=== PATIENT | male | born 1990 | race Caucasian/White ===

== ENCOUNTER 2020-02-18 10:35 | Inpatient (IN) | payer OTHER ==
[~2020-02-18] VITALS: Ht 177.8 cm; Wt 109.3 kg
[2020-02-18 10:52] VITALS: Ht 177.8 cm; Wt 109.3 kg
--- NOTE | 2020-02-18 11:17 | NUR ---
PT BIB SELF C/O DYSURIA AND BURNING WITH URINATION X 1 DAY. PT REPORTS "I FEEL SOMETHING HARD HERE" AND POINTS TO MIDLINE PELV[place]. PT REPORTS GROIN PAIN, DYSURIA AND BURNING WITH URINATION X 1 DAY. PT REPORTS FEVER X 1 DAY AND REPORTS TAKING IBUPROFEN YESTERDAY. PT REPORTS PAIN 8/10 AT THIS TIME. PT AAOX4, RESP E/U, NO DISTRESS NOTED. PT GOWNED AND PLACED ON MONITOR. IV ESTABLISHED AND LABS DRAWN. AWAITING MSE BY . PT GIVEN TYLENOL IN TRIAGE PER NURSING PROTOCOL
--- NOTE | 2020-02-18 11:20 | NUR ---
PT TAKEN OFF ER FLOOR TO CT
--- NOTE | 2020-02-18 11:31 | NUR ---
PT RETURNED TO ER FLOOR FROM CT
[2020-02-18 12:00] LABS: CALCIUM 8.4 mg/dL (8.5-10.1); CARBON DIOXIDE 24.1 mmol/L (21-32); CHLORIDE SERUM 102 mmol/L (98-107); GFR1 > 60 mL/min; GLUCOSE SERUM 106 mg/dL (74-106); POTASSIUM SERUM 3.7 mmol/L (3.5-5.1); SODIUM SERUM 134 mmol/L (136-145)
--- NOTE | 2020-02-18 12:00 | NUR ---
JAYLAN GATICA AT THE BEDSIDE FOR LAB DRAW.
[2020-02-18 12:05] LABS: ALBUMIN 3.7 g/dL (3.4-5.0); ALKALINE PHOSPHATASE 98 U/L (46-116); ALT/SGPT 58 U/L (16-63); AST/SGOT 23 U/L (15-37); BILIRUBIN TOTAL 1.61 mg/dL (0.20-1.00); TOTAL PROTEIN, SERUM 7.7 g/dL (6.4-8.2)
[2020-02-18 12:15] LABS: UA SPECIFIC GRAVITY 1.015 (1.005-1.035); microscopic required? YES; urine erythrocyte NEGATIVE (NEGATIVE)
[2020-02-18 12:25] LABS: PLATELET COUNT 175 x10^3mcL (130-400); RED CELL DISTRIBUTION WIDTH 13.4 % (11.5-14.5)
[2020-02-18 12:27] LABS: BASOPHIL % 0 % (0-2)
--- NOTE | 2020-02-18 13:22 | NUR ---
REPORT CALLED TO MELISSA HOBSON. SHE WILL ASSUME FURTHER CARE OF THIS PT
[2020-02-18 13:48] VITALS: BP 125/72
--- NOTE | 2020-02-18 13:55 | NUR ---
RECEIVED PT FROM ER, PT ADMIT FOR PERFORATED DIVERTICULITIS. PT IS A/O X4, VERBAL RESPONSIVE. LUNG SOUND CLEAR BILATERAL, NO COUGH, NO SOB. PT DENY ANY CHEST PAIN OR DISCOMFORT, BOWEL SOUND PRESENT ALL 4 QUADRANTS, HYPOACTIVE. PT C/O LOW MID ABD PAIN 7/10, DENY ANY N/V AT THIS TIME, PEDAL PULSE PRESENT BOTH FEET, NO EDEMA, IV AT RIGHT AC, NO LEAKING, NO INFILTRATION. ALL ADLS ASSIST, ALL NEED MET, CALL LIGHT IN REACH, WILL CONTINUE TO MONITOR.
--- NOTE | 2020-02-18 14:08 | NUR ---
PATIENT ARRIVED TO THE UNIT AT 1330 VIA WHEEL CHAIR . PATIENT A&OX4, SPEAK MINIMAL NEPALI, MAINLY SPANICH. CONTINUING FLAGYL INFUSION AND D5 NS AT 80ML/HR. PATIENT DENIES PAIN, NAUSEA OR VOMITING. ORIENTED PATIENT TO THE UNIT. WILL CONTINUE TO MONITOR PATIENT.
[2020-02-18 16:48] VITALS: BP 110/56
--- NOTE | 2020-02-18 18:13 | NUR ---
PATIENT RESTING COMFORTABLE IN BED. VITAL SIGNS STABLE. DENIES BLOOD IN STOOL OR URINE. WILL CONTINUE TO MONITOR PATIENT
--- NOTE | 2020-02-18 19:50 | NUR ---
RECEIVED PT FROM [facility] NURSE. PT IS AAOX4, UPPER SORBIAN SPEAKING, DENIES HEADACHE/NAUSEA/DIZZINESS. PT IS MED SURG PATIENT, DENIES CHEST PAIN. PULSES ARE EQUAL BILATERALLY, NO EDEMA NOTED. PT IS CTA, ON RA, DENIES SOB. NO ACUTE DISTRESS NOTED, EVEN AND UNLABORED BREATHING. ABDOMEN IS SOFT AND ROUND, NO PAIN UPON PALPATION AT THIS TIME. PATIENT HAS DESCRIBED INTERMITTENT LOWER ABDOMINAL PAIN, DENIES NEED FOR PAIN MEDICATION AT THIS TIME. PT VOIDS FREELY, URINAL AT BEDSIDE. PT IS ABLE TO AMBULATE WITHOUT DIFFICULTY. SKIN IS DRY AND INTACT, NO LESIONS NOTED. IV TO IS RAC, SITE INTACT, D5NS RUNNING AT 80 ML/HR, NO REDNESS OR SWELLING NOTED. PT IS CALM AND COOPERATIVE. ALL SAFETY MEASURES IN PLACE. BED IN LOWEST POSITION, CALL LIGHT WITHIN REACH. WILL CONTINUE TO MONITOR.
[2020-02-18 21:07] VITALS: BP 117/59
--- NOTE | 2020-02-19 00:10 | NUR ---
[employer]UMENTS INSPECTOR REPORTED TEMP OF 100.8. APPLIED COOLING MEASURES. TEMP WAS RE-ASSSED, 98.7. PATIENT IS NOT SYMPTOMATIC. ALL SAFETY MEASURES IN PLACE. BED IN LOWEST POSITION, CALL LIGHT WITHIN REACH.
[2020-02-19 05:00] VITALS: BP 101/48
--- NOTE | 2020-02-19 06:24 | NUR ---
PATIENT RESTED INTERMITTENTLY WITH NO ACUTE DISTRESS. PATIENT DENIES NEED FOR PAIN MEDICATION AT THIS TIME. DENIES CHEST PAIN/SOB. IV TO RAC, SITE INTACT, NO REDNESS OR SWELLING. D5NS 80ML/HR RUNNING IN RAC. CURRENTLY RUNNING SECOND DOSE OF FLAGYL IV. PATIENT HAD DIARRHEA THROUGHOUT THE NIGHT. ALL SAFETY MEASURES IN PLACE. BED IN LOWEST POSITION, CALL LIGHT WITHIN REACH. WILL CONTINUE TO MONITOR.
--- NOTE | 2020-02-19 07:18 | NUR ---
ENDORSED CARE TO DAYSHIFT NURSE. ALL QUESTIONS/CONCERNS ADDRESSED.
[2020-02-19 07:50] VITALS: BP 127/79
--- NOTE | 2020-02-19 11:13 | NUR ---
PATIENT REMAINS NPO. VISTAL SIGNS STABLE. PATIENT HAD ONE EPISODE OF DIARRHEA TODAY, BUT DENIES BLOODY STOOL OR URINE. PATIENT DENIES ANY ABDOMINAL PAIN. HE SAID IT FELLS MORE LIKE DISCOMFORT FROM TOO HUNGRY. CONTINUING IV NORMAL SALINE INFUSION 80ML/HR. PATIENT RESTING COMFORTABLE IN BED. CALL LIGHT WITHIN REACH. WILL CONTINUE TO MONITOR PATIENT.
[2020-02-19 11:59] VITALS: BP 125/76
[2020-02-19 17:05] VITALS: BP 120/75
--- NOTE | 2020-02-19 17:36 | NUR ---
PATEINT REMAINS AFREBRILE THROUGH OUT THE SHIFT. CONTINUING IV D5NS. IV FLAGYL AND CEFTRIAXONE GIVEN. PATIEN STATED THAT HE IS FEELING BETTER
[2020-02-19 21:19] VITALS: BP 126/70
--- NOTE | 2020-02-19 21:20 | NUR ---
AOXX4 LAYING COMFORTABLY IN BED DENIES PAIN/DISCOMFORT NPO NO OTHER COMPLAINTS AT THIS TIME CALL LIGHT WITHIN REACH WILL CONTINUE TO MONITOR PT
[2020-02-20 04:37] VITALS: BP 121/70
--- NOTE | 2020-02-20 06:15 | NUR ---
PT SLEPT WELL THROUHOUT THE NIGHT DENIES PAIN/DISCOMFORT NPO MAINTAINED NO SOB NO SIGNS OF DISTRESS NOTED IVF RUNNING VSS CALL LIGHT WITHIN REACH WILL ENDORSE TO ONCOMING RN
[2020-02-20 07:36] VITALS: BP 136/81
[2020-02-20 07:50] LABS: BASOPHIL % 0.4 % (0-2); PLATELET COUNT 212 x10^3mcL (130-400)
[2020-02-20 08:11] LABS: CALCIUM 8.9 mg/dL (8.5-10.1); CARBON DIOXIDE 24.3 mmol/L (21-32); CHLORIDE SERUM 105 mmol/L (98-107); CREATININE SERUM 0.9 mg/dL (0.7-1.3); GFR1 > 60 mL/min; GLUCOSE SERUM 98 mg/dL (74-106); POTASSIUM SERUM 3.8 mmol/L (3.5-5.1); SODIUM SERUM 140 mmol/L (136-145)
--- NOTE | 2020-02-20 10:28 | NUR ---
PATIENT IS ALERT AND ORIENTED X4. PATIENT DENIES PAIN. PATEINT STATED HE HAD DIARRHEA 3-4 TIMES THIS MORNING. PATIENT DENIES SHORTNESS OF BREATH, PAIN, AND RESPIRATORY DISTRESS. AM CARE NEEDS MET. PATIENTS TOLERATED AM MEDICATIONS WELL. PATIENT WENT DOWN FOR CT SCAN. HOMEOSTASIS MAINTAINED AT PATIENTS BASELINE. WILL CONTINUE TO MONITOR PATIENT THROUGHOUT SHIFT.
[2020-02-20 12:05] VITALS: BP 123/72
[2020-02-20 16:06] VITALS: BP 125/77
[2020-02-20 16:17] VITALS: BP 173/107
--- NOTE | 2020-02-20 18:11 | NUR ---
PATIENT IS IN BED RESTING. PATIENT IS ALERT AND ORIENTED X4. PATIENT DENIES PAIN, DISTRESS, AND SHORTNESS OF BREATH. ALL CARE NEEDS MET. HOMEOSTASIS MAINTAINED AT PATIENTS BASELINE. BED IN LOW POSITION. CALL LIGHT IN REACH. TWO SIDE RAILS UP. WILL GIVE REPORT TO NIGHT NURSE.
[2020-02-20 20:26] VITALS: BP 120/76
--- NOTE | 2020-02-20 20:27 | NUR ---
PT AOX4 RESTING IN BED COMFORTABLY DENIES PAIN/DISCOMFORT DENIES N/V/D IVF INFUSING CALL LIGHT WITHIN REACH WILL CONTINUE TO MONITOR PT
[2020-02-21 05:10] VITALS: BP 134/90
--- NOTE | 2020-02-21 05:55 | NUR ---
PT SLEPT WELL THROUGHOUT THE NIGHT MCKENZIE PAIN/DISCOMFORT RA VSS IVF RUNNING NPO MAITIANEED NO COMPLAINTS THROUGHOUT THE SHIFT WILL ENDORSE TO ONCOMING RN
[2020-02-21 07:45] LABS: ALKALINE PHOSPHATASE 107 U/L (46-116); ALT/SGPT 40 U/L (16-63); AST/SGOT 19 U/L (15-37); BILIRUBIN TOTAL 0.44 mg/dL (0.20-1.00); CALCIUM 8.8 mg/dL (8.5-10.1); CARBON DIOXIDE 27.8 mmol/L (21-32); CHLORIDE SERUM 105 mmol/L (98-107); CREATININE SERUM 0.8 mg/dL (0.7-1.3); GFR1 > 60 mL/min; GLUCOSE SERUM 98 mg/dL (74-106); POTASSIUM SERUM 3.9 mmol/L (3.5-5.1); SODIUM SERUM 142 mmol/L (136-145); TOTAL PROTEIN, SERUM 7.9 g/dL (6.4-8.2)
[2020-02-21 07:52] LABS: ALBUMIN 3.3 g/dL (3.4-5.0)
--- NOTE | 2020-02-21 08:23 | NUR ---
PATIENT IS IN BED RESTING. PATIENT IS ALERT AND ORIENTED X4. PATIENT DENIES PAIN, DISTRESS, AND SHORTNESS OF BREATH. IV PATENT AND INTACT. HOMEOSTASIS MAINTAINED AT PATIENTS BASELINE. BED IN LOW POSITION. CALL LIGHT IN REACH. TWO SIDE RAILS UP. WILL CONTINUE TO MONITOR PATIENT THROUGHOUT SHIFT.
[2020-02-21 08:54] VITALS: BP 124/76
[2020-02-21 10:04] LABS: BASOPHIL % 0.3 % (0-2); PLATELET COUNT 245 x10^3mcL (130-400); RED CELL DISTRIBUTION WIDTH 13.1 % (11.5-14.5)
[2020-02-21 12:22] VITALS: BP 126/72
[2020-02-21 17:04] VITALS: BP 123/79
--- NOTE | 2020-02-21 18:23 | NUR ---
PATIENT IS EATING DINNER. PATIENT IS ALERT AND ORIENTED X2. ALL CARE NEEDS MET. PATIENT REQUIRES REORIENTATION DUE TO CONFUSION. BED IN LOW POSITION. CALL LIGHT IN REACH. HOMEOSTASIS MAINTAINED AT BASELINE. WILL GIVE REPORT TO NIGHT NURSE.
--- NOTE | 2020-02-21 18:27 | NUR ---
PATIENT IS IN BED RESTING. PATIENT IS ALERT AND ORIENTED X4. PATIENT DENIES PAIN, DISTRESS, AND SHORTNESS OF BREATH. ALL CARE NEEDS MET. HOMEOSTASIS MAINTAINED AT BASELINE. BED IN LOW POSITION. CALL LIGHT IN REACH. WILL GIVE REPORT TO NIGHT NURSE.
--- NOTE | 2020-02-21 19:30 | NUR ---
RECEIVED PT IN BED AWAKE, A/O X 4, BALE TO FOLLOW COMMANDS, ABLE TO MAKE NEEDS KNOWN, NO MACDONALD OR DIZZINESS. LUNG SOUNDS CLR, RESP IS EVEN AND UNLABORED, SPO2 97% RA. RADIAL AND PEDAL PULSES PRESENT, NO EDEMA NOTED. ABDOMEN ROUND AND SOFT, DENIES ANY PAIN OR TENDERNESS, NO C/O NVD AT THIS TIME. VOIDS FREELY, NO DISCOMFOT REPORTED. SKIN IS WARM, DRY AND INTACT IV SITE TO THE RAC, PATENT AND FLUSHING WELL. BED TO LOWEST POSITION, CALL LIGHT WITHIN REACH. WILL CONT TO MONITOR FOR CHANGES IN CONDITION.
[2020-02-21 21:19] VITALS: BP 126/73
--- NOTE | 2020-02-21 23:24 | NUR ---
PT IN BED RESTING COMFORTABLY WITH EYES CLOSED. NO C/O PAIN, NO ACUTE DISTRESS NOTED. RESP IS EVEN AND UNLABORED. PROVIDE FREQUENT VISUAL MONITORING. BED TO LOWEST POSITION, CALL LIGHT WITHIN REACH. WILL CONT TO MONITOR FOR CHANGES IN CONDITION.
[2020-02-22 05:08] VITALS: BP 107/64
--- NOTE | 2020-02-22 06:09 | NUR ---
PT IN BED AWAKE, RESTING COMFORTABLY. NO C/O PAIN. NO ACUTE DISTRESS NOTED. RESP IS EVEN AND UNLABORED. CONT ONT ATB THEREPY LEVAQUIN AND FLAGYL WITH NO ASE NOTED. PT DENIES ANY ABDOMINAL PAIN, NVD AT THIS TIME. BED TO LOWEST POSITION, CALL LIGHT WITHIN REACH, WILL CONT TO MONITOR FOR CHANGES IN CONDITION AND WILL ENDORSE TO NEXT SHIFT NURSE.
[2020-02-22 06:48] LABS: BASOPHIL % 0.3 % (0-2); PLATELET COUNT 273 x10^3mcL (130-400); RED CELL DISTRIBUTION WIDTH 12.7 % (11.5-14.5)
[2020-02-22 07:10] LABS: CALCIUM 9.3 mg/dL (8.5-10.1); CARBON DIOXIDE 26.9 mmol/L (21-32); CHLORIDE SERUM 106 mmol/L (98-107); CREATININE SERUM 0.9 mg/dL (0.7-1.3); GFR1 > 60 mL/min; GLUCOSE SERUM 102 mg/dL (74-106); POTASSIUM SERUM 4.1 mmol/L (3.5-5.1); SODIUM SERUM 144 mmol/L (136-145)
[2020-02-22 07:55] VITALS: BP 116/63
--- NOTE | 2020-02-22 10:43 | NUR ---
PATIENT IS IN BED RESTING. PATIENT IS ALERT AND ORIENTED X4. PATIET IS COOPERATIVE WITH CARE AND ABLE TO VERBALIZE NEEDS. PATIENT DENIES PAIN, DISTRESS, AND SHORTNESS OF BREATH. PATIENT HAD ONE BOWEL MOVEMENT TODAY AFTER BREAKFAST. STOOL DESCRIPTION: GREEN AND WATERY. AM CARE NEEDS MET. HOMEOSTASIS MAINTAINED AT BASELINE. IV IN RIGHT AC PATENT AND RUNNING IV FLUIDS AT 70ML/HOUR. BED IN LOW POSITION. CALL LIGHT IN REACH. TWO SIDE RAILS UP. WILL CONTINUE TO MONITOR PATIENT THROUGHOUT SHIFT.
[2020-02-22 11:43] VITALS: BP 118/76
[2020-02-22] MEDS ORDERED: FLAGYL500 MG PO (15:21)
[2020-02-22] MEDS ORDERED: LEVAQUIN500 M1 PO (15:21)
[2020-02-22] MEDS ORDERED: PEPCID AC20 M2 PO (15:22)
[2020-02-22 16:10] VITALS: BP 122/74
[2020-02-22 16:19] VITALS: BP 122/74
--- NOTE | 2020-02-22 17:54 | NUR ---
PATIENT DISCHARGED HOME VIA PRIVATE AUTO. IV TAKEN OUT. DISCHARGE PAPERWORK GIVEN TO PATIENT. ID BAND REMOVED. DISCHARGE TEACHING COMPLETE. BELONGINGS SENT HOME WITH PATIENT. PATIENT IS IN STABLE CONDITION.
== END 2020-02-22 17:55 | disposition home or self-care (01) | DRG 244 ==
LOC: ED 10:35 → MU 12:26
PROVIDERS: Emergency Medicine; ADMIT Internal Medicine; ATTEND Internal Medicine
DX: K57.20 Diverticulitis of large intestine with perforation and abscess without bleeding (principal); E87.1 Hypo-osmolality and hyponatremia; D72.829 Elevated white blood cell count, unspecified; Z20.828 Contact with and (suspected) exposure to other viral communicable diseases; E66.9 Obesity, unspecified; Z68.33 Body mass index [BMI] 33.0-33.9, adult; Z79.899 Other long term (current) drug therapy; Z79.891 Long term (current) use of opiate analgesic; Z79.01 Long term (current) use of anticoagulants
CPT/HCPCS: 87491; 87591; C9113; G0378; J0696; J1956; J2543; J3480; J3490; J7030; J7042; Q9967